=== PATIENT | female | born 1985 | race American Indian/Alaskan Native ===

== ENCOUNTER 2019-10-05 20:10 | Emergency (ER) | payer SELFPAY | END 2019-10-06 01:05 | disposition home or self-care (01) | LOC: ED 20:10 | DX: G44.59 Other complicated headache syndrome (principal) | CPT/HCPCS: 36415; 70450; 80048; 82962; 84484; 85025; 85610; 85670; 85730; 93005; 93010; 96365; 96375; 99285; J1200; J1885; J2765; J2930; J3475 ==